=== PATIENT | female | born 1985 | race Caucasian/White ===

== ENCOUNTER 2016-11-26 10:56 | Emergency (ER) | payer MEDICAID ==
[2016-11-26] MEDS ORDERED: DEXAMETHASONE 10 MG/ML VIAL PO STA (12:42)
[2016-11-26] MEDS ORDERED: DEXAMETHASONE 10 MG/ML VIAL ONE (12:46)
[2016-11-26] MEDS ORDERED: CHERRY SYRUP 10 ML UDC PO ONE (12:46)
== END 2016-11-26 13:40 | disposition home or self-care (01) ==
DX: J02.0 Streptococcal pharyngitis (principal)
CPT/HCPCS: 87430; 99283; A9270